=== PATIENT | male | born 1980 | race African-American/Black ===

== ENCOUNTER 2019-12-11 10:01 | Emergency (ER) | payer SELFPAY ==
--- NOTE | 2019-12-11 10:12 | ED Cardiac General ---
History of Present Illness General Chief Complaint: Chest Pain Stated Complaint: CHEST PAIN Source: patient, RN/MD, RN notes reviewed, old records Exam Limitations: no limitations History of Present Illness Date Seen by Provider: Dec 11, 2019 Time Seen by Provider: 10:00 Initial Comments This patient is a 39-year-old male that presents to the emergency department complaining of vague chest pain to the left side. Patient has significant history of hypertension for which she is supposed takes 3 different medications at home for. Patient states he admits noncompliance and just restarted on his blood pressure medicine 2 days ago. Patient presents to the emergency department from local clinic with a blood pressure 210/129. Patient takes amlodipine lisinopril and hydralazine 50 mg 3 times a day. Patient states he took his blood pressure medicine this morning all except the hydralazine and has not taken it. Patient states she's been under increased stress due to her -concerns for possible breast cancer and had a mammogram today. Patient states he has been admitted before in the past when living in [place] for blood pressure issues. And was told that he had a big heart. We'll do medical evaluation treatment is needed. Severity: moderate Location: substernal Activities at Onset: none Prior CP/Workup: non-cardiac Allergies and Home Medications Allergies Coded Allergies: No Known Drug Allergies (Unverified , 12/11/19) Patient Home Medication List Home Medication List Reviewed: Yes Review of Systems Review of Systems Constitutional: No no symptoms reported, No see HPI, No chills, No diaphoresis, No dizziness, No fever, No malaise, No weakness, No weight gain, No weight loss, No other EENTM: No No Symptoms Reported, No See HPI, No Blurred Vision, No Double Vision, No Eye Pain, No Eye Tearing, No Ear Drainage, No Ear Pain, No Mouth Pain, No Mouth Swelling, No Nose Congestion, No Nose Pain, No Throat Pain, No Throat Swelling, No Other Respiratory: Denies No Symptoms Reported, Denies See HPI, Denies Cough, Denies Orthopnea, Denies Shortness of Air, Denies SOA With Exertion, Denies SOA at Rest, Denies Stridor, Denies Wheezing, Denies Other Cardiovascular: Denies No Symptoms Reported; See HPI, Chest Pain; Denies Edema, Denies Irregular Heart Rate, Denies Lightheadedness, Denies Palpitations, Denies Syncope, Denies Other Gastrointestinal: Denies No Symptoms Reported, Denies See HPI, Denies Abdomen Distended, Denies Abdominal Pain, Denies Blood Streaked Stools, Denies Constipated, Denies Diarrhea, Denies Difficulty Swallowing, Denies Nausea, Сергей es Poor Appetite, Denies Poor Fluid Intake, Denies Rectal Bleeding, Denies Vomiting, Denies Other Genitourinary: Denies No Symptoms Reported, Denies See HPI, Denies Burning, Denies Discharge, Denies Drainage, Denies Frequency, Denies Flank Pain, Denies Hematuria, Denies Incontinence, Denies Pain, Denies Urgency, Denies Other Musculoskeletal: No no symptoms reported, No see HPI, No back pain, No gout, No joint pain, No joint swelling, No muscle pain, No muscle stiffness, No muscle cramps, No muscle twitching, No muscle weakness, No neck pain, No other Skin: No no symptoms reported, No see HPI, No change in color, No change in hair/nails, No dryness, No hx of skin cancer, No lesions, No lumps, No pruritus, No rash, No other All Other Systems Reviewed Negative Unless Noted: Yes Past Ddtxdil-Yyutzl-Yyzkvr Hx Patient Social History Recent Foreign Travel: No Contact w/Someone Who Travel: No Physical Exam Vital Signs Vital Signs - First Documented 12/11/19 10:08 Temp 36.7 Pulse 61 Resp 17 B/P (MAP) 210/129 (156) Pulse Ox 97 Capillary Refill : Height, Weight, BMI Height: '" Weight: lbs. oz. kg; BMI Method: General Appearance: No Apparent Distress, WD/WN Respiratory: Chest Non Tender, Lungs Clear, Normal Breath Sounds, No Accessory Muscle Use, No Respiratory Distress Cardiovascular: Regular Rate, Rhythm, No Edema, No Gallop, No JVD, No Murmur, Normal Peripheral Pulses Gastrointestinal: Normal Bowel Sounds, No Organomegaly, No Pulsatile Mass, Non Tender Neurologic/Psychiatric: Alert, Oriented x3, No Motor/Sensory Deficits, Normal Mood/Affect Skin: Normal Color, Warm/Dry Progress/Results/Core Measures Results/Orders Lab Results Laboratory Tests Test 12/11/19 10:09 12/11/19 10:47 Range/Units White Blood Count 5.0 4.3-11.0 10^3/uL Red Blood Count 5.48 4.35-5.85 10^6/uL Hemoglobin 14.4 13.3-17.7 G/DL Hematocrit 43 40-54 % Mean Corpuscular Volume 79 L 80-99 FL Mean Corpuscular Hemoglobin 26 25-34 PG Mean Corpuscular Hemoglobin Concent 34 32-36 G/DL Red Cell Distribution Width 13.8 10.0-14.5 % Platelet Count 206 130-400 10^3/uL Mean Platelet Volume 12.9 H 7.4-10.4 FL Immature Granulocyte % (Auto) 0 % Neutrophils (%) (Auto) 42 42-75 % Lymphocytes (%) (Auto) 48 H 12-44 % Monocytes (%) (Auto) 5 0-12 % Eosinophils (%) (Auto) 3 0-10 % Basophils (%) (Auto) 1 0-10 % Neutrophils # (Auto) 2.1 1.8-7.8 X 10^3 Lymphocytes # (Auto) 2.4 1.0-4.0 X 10^3 Monocytes # (Auto) 0.3 0.0-1.0 X 10^3 Eosinophils # (Auto) 0.2 0.0-0.3 10^3/uL Basophils # (Auto) 0.1 0.0-0.1 10^3/uL Immature Granulocyte # (Auto) 0.0 0.0-0.1 10^3/uL Prothrombin Time 13.5 12.2-14.7 SEC INR Comment 1.0 0.8-1.4 Sodium Level 140 135-145 MMOL/L Potassium Level 3.6 3.6-5.0 MMOL/L Chloride Level 104 98-107 MMOL/L Carbon Dioxide Level 27 21-32 MMOL/L Anion Gap 9 5-14 MMOL/L Blood Urea Nitrogen 11 7-18 MG/DL Creatinine 1.51 H 0.60-1.30 MG/DL Estimat Glomerular Filtration Rate 52 BUN/Creatinine Ratio 7 Glucose Level 111 H 70-105 MG/DL Calcium Level 9.3 8.5-10.1 MG/DL Corrected Calcium 8.5-10.1 MG/DL Total Bilirubin 0.3 0.1-1.0 MG/DL Aspartate Amino Transf (AST/SGOT) 42 H 5-34 U/L Alanine Aminotransferase (ALT/SGPT) 64 H 0-55 U/L Alkaline Phosphatase 85 40-136 U/L Troponin I < 0.30 <0.30 NG/ML Pro-B-Type Natriuretic Peptide 157.0 H <75.0 PG/ML Total Protein 7.4 6.4-8.2 GM/DL Albumin 4.6 H 3.2-4.5 GM/DL Urine Color YELLOW Urine Clarity CLEAR Urine pH 6.5 5-9 Urine Specific [place] 1.020 1.016-1.022 Urine Protein 1+ H NEGATIVE Urine Glucose (UA) NEGATIVE NEGATIVE Urine Ketones NEGATIVE NEGATIVE Urine Nitrite NEGATIVE NEGATIVE Urine Bilirubin NEGATIVE NEGATIVE Urine Urobilinogen 0.2 < = 1.0 MG/DL Urine Leukocyte Esterase NEGATIVE NEGATIVE Urine RBC (Auto) NEGATIVE NEGATIVE Urine RBC RARE /HPF Urine WBC NONE /HPF Urine Squamous Epithelial Cells RARE /HPF Urine Crystals NONE /LPF Urine Bacteria NONE /HPF Urine Casts NONE /LPF Urine Mucus NEGATIVE /LPF Urine Culture Indicated NO My Orders Orders - CAROLINA BROWN MD Ed Iv/Invasive Line Start (12/11/19 10:06) Cbc With Automated Diff (12/11/19 10:06) Comprehensive Metabolic Panel (12/11/19 10:06) Probnp Fs (12/11/19 10:06) Protime With Inr (12/11/19 10:06) Troponin I Fs (12/11/19 10:06) Urinalysis (12/11/19 10:06) Ekg Tracing (12/11/19 10:06) Chest 1 View Ap/Pa Only (12/11/19 10:06) Hydralazine Injection (Apresoline Inject (12/11/19 10:15) Aspirin Tablet (Aspirin Tablet) (12/11/19 10:15) Nitroglycerin 0.4 Mg Btl 25's (Nitrostat (12/11/19 10:15) Medications Given in ED Current Medications Medications Dose Ordered Sig/Brianna Route Start Time Stop Time Status Last Admin Dose Admin Aspirin 325 mg ONCE ONCE PO 12/11/19 10:15 12/11/19 10:16 DC 12/11/19 10:19 325 MG Hydralazine HCl 10 mg ONCE ONCE IV 12/11/19 10:15 12/11/19 10:16 DC 12/11/19 10:20 10 MG Nitroglycerin 1 TAB Q 5 MIN X 3 NEEDED PRN SL 12/11/19 10:15 12/11/19 10:20 0.4 MG Vital Signs/I&O 12/11/19 10:08 Temp 36.7 Pulse 61 Resp 17 B/P (MAP) 210/129 (156) Pulse Ox 97 Progress Progress Note : Time: 11:11 Progress Note This patient presents to the emergency department complaining of chest pressure and hypertension. Patient is much improved denies any chest pain at this time. Negative cardiac evaluation in the emergency department. Patient still has elevated blood pressure 190/97. Heart rate 75. I did discuss at length with patient about findings and concerns a significant elevation of blood pressure and recommended the patient further evaluation treatment and offered inpatient evaluation in the hospital. Patient declines. Patient states his blood pressures always around 190/90. I did discuss at length with patient about history of noncompliance. The patient states he just got a refill on his medications and admits he did not take his hydralazine today. Patient is to continue all of his home medications. Again patient was offered admission but he declines. Patient advised any blood pressure log and follow up with PCP in 2-3 days may need f urther blood pressure evaluation and treatment and modification of his current treatment. Patient states understanding again requests to be discharged home. Patient be discharged per his request. Continue all home medications. Keep blood pressure log as discussed. Follow-up with PCP in 2-3 days. Avoid caffeine. Initial ECG Impression Date: Dec 11, 2019 Initial ECG Impression Time: 09:59 Initial ECG Rate: 69 Initial ECG Intervals: Normal Initial ECG Impression: Nonspecific Changes Comment Sinus rhythm with a heart rate of 69. Patient appears to have left atrial enlargement and incomplete right bundle branch lock in a left anterior fascicular block. Nonspecific EKG changes. We'll do medical evaluation treatment is needed. Departure Impression Primary Impression: Chest pain Additional Impressions: Hypertension History of noncompliance with medical treatment Disposition: 01 HOME, SELF-CARE Condition: Stable Departure-Patient Inst. Referrals: KITTY VILLALBA APRN (PCP) Primary Care Physician [facility] (Family) Primary Care Physician Patient Instructions: Malignant Hypertension (DC), DASH Diet Add. Discharge Instructions: Continue all home medications. Keep blood pressure log as discussed. Follow-up with PCP in 2-3 days. Avoid caffeine. All discharge instructions reviewed with patient and/or family. Voiced understanding. CAROLINA BROWN MD Dec 11, 2019 10:12
[2019-12-11] MEDS ORDERED: NITROGLYCERIN 0.4 MG SL TABS BTL 25'S SL PRN (10:15)
[2019-12-11] MEDS ORDERED: ASPIRIN 325 MG (5 GR) TABLET PO ONE (10:15)
[2019-12-11] MEDS ORDERED: hydrALAZINE (APESOLINE) 20 MG/ML VIAL IV ONE (10:15)
[2019-12-11 10:17] LABS: HEMATOCRIT 43 % (40-54); HEMOGLOBIN 14.4 G/DL (13.3-17.7); MEAN CORPUSCULAR HEMOGLOBIN 26 PG (25-34); MEAN CORPUSCULAR HGB CONC 34 G/DL (32-36); MEAN CORPUSCULAR VOLUME 79 FL (80-99); MEAN PLATELET VOLUME 12.9 FL (7.4-10.4); NEUTROPHILS % (AUTO) 42 % (42-75); PLATELET COUNT 206 10^3/uL (130-400)
[2019-12-11 10:18] LABS: BASOPHILS # (AUTO) 0.1 10^3/uL (0.0-0.1); BASOPHILS % (AUTO) 1 % (0-10); EOSINOPHILS # (AUTO) 0.2 10^3/uL (0.0-0.3); EOSINOPHILS % (AUTO) 3 % (0-10); LYMPHOCYTES # (AUTO) 2.4 X 10^3 (1.0-4.0); LYMPHOCYTES % (AUTO) 48 % (12-44); MONOCYTES # (AUTO) 0.3 X 10^3 (0.0-1.0); MONOCYTES % (AUTO) 5 % (0-12); NEUTROPHILS # (AUTO) 2.1 X 10^3 (1.8-7.8)
[2019-12-11 10:28] LABS: PROTHROMBIN TIME PATIENT 13.5 SEC (12.2-14.7)
[2019-12-11 10:42] LABS: CARBON DIOXIDE 27 MMOL/L (21-32); CHLORIDE 104 MMOL/L (98-107); POTASSIUM 3.6 MMOL/L (3.6-5.0); SODIUM 140 MMOL/L (135-145)
[2019-12-11 10:43] LABS: ALANINE AMINOTRANSFERASE 64 U/L (0-55); ALBUMIN 4.6 GM/DL (3.2-4.5); ALKALINE PHOSPHATASE 85 U/L (40-136); BILIRUBIN,TOTAL 0.3 MG/DL (0.1-1.0); BUN/CREATININE RATIO 7; CALCIUM 9.3 MG/DL (8.5-10.1); CREATININE SERUM 1.51 MG/DL (0.60-1.30); GFR ESTIMATED 52; GLUCOSE 111 MG/DL (70-105); TOTAL PROTEIN 7.4 GM/DL (6.4-8.2)
--- NOTE | 2019-12-11 10:52 | Diagnostic Imaging Report ---
INDICATION: Chest pain FINDING: Portable chest. The lungs are well-aerated and clear. Heart is not enlarged. No pulmonary edema or hilar adenopathy. No pneumothorax or pleural effusion. No bony abnormalities. IMPRESSION: Negative portable chest. Dictated by: Dictated on workstation # [id number]
[2019-12-11 10:58] LABS: BILIRUBIN,URINE NEGATIVE (NEGATIVE); CLARITY,URINE CLEAR; COLOR,URINE YELLOW; GLUCOSE, URINE (UA) NEGATIVE (NEGATIVE); KETONES,URINE NEGATIVE (NEGATIVE); LEUKOCYTE ESTERASE ,URINE NEGATIVE (NEGATIVE); NITRITE,URINE NEGATIVE (NEGATIVE); PH,URINE 6.5 (5-9); PROTEIN,URINE 1+ (NEGATIVE); RBC,URINE RARE /HPF; SQUAMOUS EPITHELIAL CELL,UR RARE /HPF
[2019-12-11 11:18] VITALS: BP 196/107
== END 2019-12-11 11:19 | disposition home or self-care (01) ==
LOC: ER FS 10:03
DX: R07.9 Chest pain, unspecified (principal); I10 Essential (primary) hypertension; Z91.19 Patient's noncompliance with other medical treatment and regimen
CPT/HCPCS: 36415; 71045; 80053; 81000; 83880; 84484; 85025; 85610; 93005

== ENCOUNTER 2020-05-05 23:46 | Emergency (ER) | payer SELFPAY ==
[~2020-05-05] VITALS: Ht 180.3 cm; Wt 110.2 kg
[2020-05-06] MEDS ORDERED: ASPIRIN 81 MG CHEW (CHILDREN'S ASA) PO ONE
[2020-05-06] MEDS: NITROGLYCERIN 0.4 MG SL TABS BTL 25'S SL PRN ×2 (00:10→00:25)
--- NOTE | 2020-05-06 00:11 | ED Chest Pain ---
General Stated Complaint: BACK AND CHEST PAIN History of Present Illness Date Seen by Provider: May 06, 2020 Time Seen by Provider: 23:55 Initial Comments 40-year-old male presents with onset of chest pain 5 hours prior to arrival. States it pain began after smoking marijuana has been persistent since then. Denies history of heart disease or other heart problem except that he was told he enlarged heart in the past. He does have a history of high blood pressure, but has not taken his medication today. Is any recent illness, fever or chills. Denies any previous similar episodes of chest pain. Has abdominal pain, nausea vomiting or diarrhea. Allergies and Home Medications Allergies Coded Allergies: No Known Drug Allergies (Unverified , 12/11/19) Patient Home Medication List Home Medication List Reviewed: Yes Review of Systems Review of Systems Constitutional: No chills, No fever, No malaise, No weakness EENTM: No Symptoms Reported Respiratory: Denies Cough, Denies Shortness of Air Cardiovascular: Chest Pain; Denies Edema, Denies Irregular Heart Rate, Denies Lightheadedness, Denies Palpitations, Denies Syncope Gastrointestinal: Denies Abdominal Pain, Denies Diarrhea, Denies Nausea, Denies Poor Appetite, Denies Vomiting Musculoskeletal: back pain (mid upper back) Skin: No change in color, No lesions, No rash Psychiatric/Neurological: Denies Headache, Denies Numbness, Denies Paresthesia Past Wyvehqd-Ovublz-Newnva Hx Past Med/Social Hx: Reviewed Nursing Past Med/Soc Hx Patient Social History 2nd Hand Smoke Exposure: No Recent Hopitalizations: No Substance type: Marijuana Seasonal Allergies Seasonal Allergies: No Past Medical History 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 oz. kg; BMI Method: General Appearance: WD/WN, Anxious HEENT: PERRL/EOMI, TMs Normal Neck: Non Tender, Supple Respiratory: Lungs Clear, Normal Breath Sounds, No Accessory Muscle Use, No Res piratory Distress Cardiovascular: Regular Rate, Rhythm, No Gallop, No JVD Gastrointestinal: Non Tender, Soft Extremity: Normal Capillary Refill, Non Tender Neurologic/Psychiatric: Alert, Oriented x3, No Motor/Sensory Deficits, Normal Mood/Affect Skin: Normal Color, Warm/Dry Progress/Results/Core Measures Results/Orders Lab Results Laboratory Tests Test 05/05/20 23:58 05/06/20 00:01 Range/Units White Blood Count 9.8 4.3-11.0 10^3/uL Red Blood Count 4.78 4.35-5.85 10^6/uL Hemoglobin 12.4 L 13.3-17.7 G/DL Hematocrit 38 L 40-54 % Mean Corpuscular Volume 80 80-99 FL Mean Corpuscular Hemoglobin 26 25-34 PG Mean Corpuscular Hemoglobin Concent 33 32-36 G/DL Red Cell Distribution Width 13.6 10.0-14.5 % Platelet Count 171 130-400 10^3/uL Mean Platelet Volume 12.5 H 7.4-10.4 FL Immature Granulocyte % (Auto) 0 % Neutrophils (%) (Auto) 76 H 42-75 % Lymphocytes (%) (Auto) 18 12-44 % Monocytes (%) (Auto) 5 0-12 % Eosinophils (%) (Auto) 1 0-10 % Basophils (%) (Auto) 0 0-10 % Neutrophils # (Auto) 7.5 1.8-7.8 X 10^3 Lymphocytes # (Auto) 1.7 1.0-4.0 X 10^3 Monocytes # (Auto) 0.5 0.0-1.0 X 10^3 Eosinophils # (Auto) 0.1 0.0-0.3 10^3/uL Basophils # (Auto) 0.0 0.0-0.1 10^3/uL Immature Granulocyte # (Auto) 0.0 0.0-0.1 10^3/uL Sodium Level 142 135-145 MMOL/L Potassium Level 3.5 L 3.6-5.0 MMOL/L Chloride Level 103 98-107 MMOL/L Carbon Dioxide Level 27 21-32 MMOL/L Anion Gap 12 5-14 MMOL/L Blood Urea Nitrogen 23 H 7-18 MG/DL Creatinine 2.18 H 0.60-1.30 MG/DL Estimat Glomerular Filtration Rate 41 BUN/Creatinine Ratio 11 Glucose Level 97 70-105 MG/DL Calcium Level 9.1 8.5-10.1 MG/DL Corrected Calcium 8.9 8.5-10.1 MG/DL Total Bilirubin 0.7 0.1-1.0 MG/DL Aspartate Amino Transf (AST/SGOT) 52 H 5-34 U/L Alanine Aminotransferase (ALT/SGPT) 52 0-55 U/L Alkaline Phosphatase 74 40-136 U/L Troponin I < 0.30 <0.30 NG/ML Total Protein 7.2 6.4-8.2 GM/DL Albumin 4.3 3.2-4.5 GM/DL Urine Opiates Screen NEGATIVE NEGATIVE Urine Oxycodone Screen NEGATIVE NEGATIVE Urine Methadone Screen NEGATIVE NEGATIVE Urine Propoxyphene Screen NEGATIVE NEGATIVE Urine Barbiturates Screen NEGATIVE NEGATIVE Ur Tricyclic Antidepressants Screen NEGATIVE NEGATIVE Urine Phencyclidine Screen NEGATIVE NEGATIVE Urine Amphetamines Screen POSITIVE H NEGATIVE Urine Methamphetamines Screen POSITIVE H NEGATIVE Urine Benzodiazepines Screen NEGATIVE NEGATIVE Urine Cocaine Screen POSITIVE H NEGATIVE Urine Cannabinoids Screen POSITIVE H NEGATIVE My Orders Orders - ROVENSTINE,WEN L DO Ed Iv/Invasive Line Start (05/05/20 23:56) Chest 1 View Ap/Pa Only (05/05/20 23:56) Ekg Tracing (05/05/20 23:56) Troponin I Fs (05/05/20 23:56) Cbc With Automated Diff (05/05/20 23:56) Comprehensive Metabolic Panel (05/05/20 23:56) Drug Screen Stat (Urine) (05/05/20 23:56) Aspirin Chewable Tablet (Baby Aspirin Ch (05/06/20 00:00) Nitroglycerin 0.4 Mg Btl 25's (Nitrostat (05/06/20 00:00) Ns Iv 1000 Ml (Sodium Chloride 0.9%) (05/06/20 00:30) Ct Chest Wo (05/06/20 00:28) Fentanyl Injection (Sublimaze Injection (05/06/20 01:30) Medications Given in ED Current Medications Medications Dose Ordered Sig/Brianna Route Start Time Stop Time Status Last Admin Dose Admin Aspirin 324 mg ONCE ONCE PO 05/06/20 00:00 05/06/20 00:01 DC 05/06/20 00:10 324 MG Fentanyl Citrate 50 mcg ONCE ONCE IVP 05/06/20 01:30 05/06/20 01:31 DC 05/06/20 01:28 50 MCG Nitroglycerin 0.4 mg NEEDED PRN SL 05/06/20 00:00 05/06/20 00:25 0.4 MG Vital Signs/I&O 05/05/20 05/06/20 23:50 00:05 Temp 37.2 Pulse 79 Resp 16 B/P (MAP) 205/93 (130) Pulse Ox 96 O2 Delivery Room Air Room Air Progress Progress Note : Time: 00:36 Progress Note after 2 NTG, CP resolved but still having upper back pain. CT chest ordered. BP normalized w NTG as well, now 119/60. UDS shows meth, cocaine and THC CT without contrast (due to low GFR) shows descending aorta larger than ascending aorta (see report). Recommends contrast CT to eval for dissection if clinically suspicious. Patients CP essentially resolved and upper mid back pain remains, improved w fentanyl. Initial ECG Impression Date: May 06, 2020 Initial ECG Impression Time: 23:50 Initial ECG Rate: 80 Initial ECG Rhythm: Normal Sinus Initial ECG Intervals: Normal Initial ECG Impression: Nonspecific Changes Initial ECG Comparisson: No Previous ECG Available Comment LVH w repol abnl EKG : EKG Time: 00:05 Rate: 80 Rhythm: Normal Sinus Intervals: Normal ECG Comparisson: Unchanged (from 15 minutes prior) Diagnostic Imaging Diagonstic Imaging: CT Plain Films/CT/US/NM/MRI: chest Comments non-contrast CT (due to poor renal function) limits the study, however, noted difference of size of ascending vs descending aorta (3cm to 4cm respectively).....recommends a contrast study for excluding a dissection if suspicious. Departure Impression Primary Impression: Chest pain Qualified Codes: R07.9 - Chest pain, unspecified Additional Impressions: Drug abuse Renal insufficiency Disposition: XFER SHT-TRM HOSP Condition: Improved Transfer Transfer Reason: Exceeds level of care (possibility of need for CT- surgery) Transfer Progress Notes Called [facility] @ [phone], spoke to Dr Mejia in the ER @ 1554 who advised patient by a direct admit as work up was complete until when and if able to give contrast. spoke to Dr Nava who accepts for transfer to [facility] @ [phone] Departure-Patient Inst. Referrals: KITTY VILLALBA APRN (PCP) Primary Care Physician [facility] (Family) Primary Care Physician WEN MCKEON DO May 06, 2020 00:11
[2020-05-06 00:22] LABS: AMPHETAMINE SCREEN, URINE POSITIVE (NEGATIVE); BENZODIAZEPINES SCREEN URINE NEGATIVE (NEGATIVE); CANNABINOID SCREEN, URINE POSITIVE (NEGATIVE); COCAINE SCREEN URINE POSITIVE (NEGATIVE); METHAMPHETAMINE SCREEN URINE S POSITIVE (NEGATIVE)
[2020-05-06 00:23] LABS: BARBITURATE SCREEN URINE NEGATIVE (NEGATIVE); METHADONE STAT NEGATIVE (NEGATIVE); OPIATE SCREEN URINE NEGATIVE (NEGATIVE); OXYCODONE STAT NEGATIVE (NEGATIVE); PROPOXYPHENE STAT NEGATIVE (NEGATIVE); TRICYCLIC ANTIDEPRESSANTS SCRE NEGATIVE (NEGATIVE)
[2020-05-06 00:24] LABS: BASOPHILS % (AUTO) 0 % (0-10); EOSINOPHILS # (AUTO) 0.1 10^3/uL (0.0-0.3); EOSINOPHILS % (AUTO) 1 % (0-10); HEMATOCRIT 38 % (40-54); HEMOGLOBIN 12.4 G/DL (13.3-17.7); LYMPHOCYTES # (AUTO) 1.7 X 10^3 (1.0-4.0); LYMPHOCYTES % (AUTO) 18 % (12-44); MEAN CORPUSCULAR HEMOGLOBIN 26 PG (25-34); MEAN CORPUSCULAR HGB CONC 33 G/DL (32-36); MEAN CORPUSCULAR VOLUME 80 FL (80-99); MEAN PLATELET VOLUME 12.5 FL (7.4-10.4); MONOCYTES # (AUTO) 0.5 X 10^3 (0.0-1.0); MONOCYTES % (AUTO) 5 % (0-12); NEUTROPHILS # (AUTO) 7.5 X 10^3 (1.8-7.8); NEUTROPHILS % (AUTO) 76 % (42-75); PLATELET COUNT 171 10^3/uL (130-400); WHITE BLOOD COUNT 9.8 10^3/uL (4.3-11.0)
[2020-05-06 00:30] LABS: CARBON DIOXIDE 27 MMOL/L (21-32); CHLORIDE 103 MMOL/L (98-107); POTASSIUM 3.5 MMOL/L (3.6-5.0); SODIUM 142 MMOL/L (135-145)
[2020-05-06] MEDS ORDERED: NS IV 1000 ML 1,000 ML IV SCH ×2 (00:30→02:45)
[2020-05-06 00:31] LABS: ALANINE AMINOTRANSFERASE 52 U/L (0-55); ALBUMIN 4.3 GM/DL (3.2-4.5); ALKALINE PHOSPHATASE 74 U/L (40-136); BILIRUBIN,TOTAL 0.7 MG/DL (0.1-1.0); BUN/CREATININE RATIO 11; CALCIUM 9.1 MG/DL (8.5-10.1); CREATININE SERUM 2.18 MG/DL (0.60-1.30); GFR ESTIMATED 41; GLUCOSE 97 MG/DL (70-105); TOTAL PROTEIN 7.2 GM/DL (6.4-8.2)
[2020-05-06] MEDS ORDERED: fentaNYL INJ 100 MCG/2 ML AMP IVP ONE ×3 (01:30→04:15)
[2020-05-06 03:40] VITALS: BP 189/93
--- NOTE | 2020-05-06 05:28 | Diagnostic Imaging Report ---
PROCEDURE: CT chest without contrast. TECHNIQUE: Multiple contiguous axial images were obtained through the chest without the use of intravenous contrast. Auto Exposure Controls were utilized during the CT exam to meet ALARA standards for radiation dose reduction. INDICATION: Central chest pain radiating to back. No definite mediastinal hematoma or pericardial fluid is seen. No pleural fluid is identified. Evaluation of the aorta is significantly limited without intravenous contrast. The aortic root and ascending thoracic aorta appears to normal caliber. There is some dilatation of the proximal aspect of the descending thoracic aorta measuring up to 4.6 cm AP diameter. No high density intraluminal thrombus is seen. Evaluation of the lung adair demonstrate some dependent atelectasis in both lower lobes. No masses are seen. Upper abdomen demonstrates low-density throughout the liver consistent with hepatic steatosis. IMPRESSION: 1. Limited evaluation of the abdominal aorta due to absence of intravenous contrast. This significantly limits evaluation for dissection. There is some dilatation of the proximal aspect of the descending thoracic aorta just beyond the aortic arch but no high density intraluminal thrombus is seen. If there is continued index of suspicion for dissection, post contrast study would be recommended. Consideration could also be given to performance of an echocardiogram. 2. Hepatic steatosis. Dictated by: Dictated on workstation # [id number]
--- NOTE | 2020-05-06 06:03 | Diagnostic Imaging Report ---
INDICATION: Chest pain. Comparison with 12/11/2019. FINDINGS: Portable chest. The lungs are well-aerated and clear. Heart is not enlarged. No pulmonary edema or hilar adenopathy. No pneumothorax or pleural effusion. No bony abnormalities. IMPRESSION: Normal portable chest. Dictated by: Dictated on workstation # [id number]
== END 2020-05-06 04:29 | disposition short-term general hospital (02) ==
LOC: EDUNIT# 23:46 → ER FS 23:48
DX: R07.9 Chest pain, unspecified (principal); F12.10 Cannabis abuse, uncomplicated; N28.9 Disorder of kidney and ureter, unspecified; I10 Essential (primary) hypertension
CPT/HCPCS: 36415; 71045; 71250; 80053; 80306; 84484; 85025; 93005

== ENCOUNTER 2020-05-17 18:32 | Emergency (ER) | payer SELFPAY ==
[2020-05-17 18:44] VITALS: BP 261/95
[2020-05-17] MEDS ORDERED: LABETALOL HCL 20 MG/4 ML VIAL ONE (18:53)
[2020-05-17 18:57] LABS: BASOPHILS # (AUTO) 0.1 10^3/uL (0.0-0.1); BASOPHILS % (AUTO) 1 % (0-10); EOSINOPHILS # (AUTO) 0.2 10^3/uL (0.0-0.3); EOSINOPHILS % (AUTO) 2 % (0-10); HEMATOCRIT 31 % (40-54); HEMOGLOBIN 10.4 G/DL (13.3-17.7); LYMPHOCYTES # (AUTO) 2.2 X 10^3 (1.0-4.0); LYMPHOCYTES % (AUTO) 15 % (12-44); MEAN CORPUSCULAR HEMOGLOBIN 26 PG (25-34); MEAN CORPUSCULAR HGB CONC 33 G/DL (32-36); MEAN CORPUSCULAR VOLUME 79 FL (80-99); MEAN PLATELET VOLUME 12.3 FL (7.4-10.4); MONOCYTES # (AUTO) 0.9 X 10^3 (0.0-1.0); MONOCYTES % (AUTO) 6 % (0-12); NEUTROPHILS % (AUTO) 73 % (42-75); PLATELET COUNT 385 10^3/uL (130-400)
[2020-05-17] MEDS ORDERED: LABETALOL HCL 20 MG/4 ML VIAL IV ONE ×2 (19:00→20:15)
--- NOTE | 2020-05-17 19:00 | Diagnostic Imaging Report ---
EXAMINATION: Chest 1 view. HISTORY: SOA. COMPARISON: Chest radiograph 05/05/2020. FINDINGS: Heart size is upper limits of normal. Minimal linear opacities in the right lung base. No pleural effusion or pneumothorax. The osseous structures are intact. IMPRESSION: Likely right basilar atelectasis. Differential consideration could include scarring or consolidation in the appropriate clinical setting. No other acute radiographic abnormality in the chest. Dictated by: Dictated on workstation # [id number]
[2020-05-17 19:17] LABS: ABG PCO2 37 MMHG (35-45); ABG PH 7.57 (7.37-7.43); ABG PO2 316 MMHG (79-93)
[2020-05-17 19:18] LABS: ABG BASE EXCESS 11.1 MMOL/L (-2.5-2.5); ABG OXYGEN SATURATION 110 % (94-100); ALLENS TEST NEGATIVE
[2020-05-17 19:19] LABS: INSPIRED O2 ROOM AIR; PATIENT TEMP 36.8; VENTILATOR NO
[2020-05-17 19:20] LABS: ALANINE AMINOTRANSFERASE 154 U/L (0-55); ALBUMIN 3.2 GM/DL (3.2-4.5); ALKALINE PHOSPHATASE 84 U/L (40-136); BILIRUBIN,TOTAL 0.4 MG/DL (0.1-1.0); BUN/CREATININE RATIO 8; CALCIUM 8.4 MG/DL (8.5-10.1); CARBON DIOXIDE 30 MMOL/L (21-32); CHLORIDE 96 MMOL/L (98-107); CREATININE SERUM 1.47 MG/DL (0.60-1.30); GFR ESTIMATED > 60; GLUCOSE 101 MG/DL (70-105); POTASSIUM 3.2 MMOL/L (3.6-5.0); SODIUM 135 MMOL/L (135-145); TOTAL PROTEIN 6.2 GM/DL (6.4-8.2)
[2020-05-17] MEDS ORDERED: FUROSEMIDE 40 MG/4 ML INJ (LASIX) IVP ONE (20:15)
[2020-05-17 20:29] LABS: BAND NEUTROPHILS 1 %; LYMPHOCYTES % (MANUAL) 14 %; MONOCYTES % (MANUAL) 4 %; NEUTROPHILS % (MANUAL) 80 %; PLATELET ESTIMATE LRG PLTS; POLYCHROMASIA SLIGHT
[2020-05-17 20:30] LABS: MICROCYTOSIS SLIGHT; TARGET CELLS SLIGHT; TOXIC GRANULATION/VACUOLAZATIO 4+
[2020-05-17 21:50] LABS: AMPHETAMINE SCREEN, URINE NEGATIVE (NEGATIVE); BARBITURATE SCREEN URINE NEGATIVE (NEGATIVE); BENZODIAZEPINES SCREEN URINE POSITIVE (NEGATIVE); CANNABINOID SCREEN, URINE NEGATIVE (NEGATIVE); COCAINE SCREEN URINE NEGATIVE (NEGATIVE); METHADONE STAT NEGATIVE (NEGATIVE); METHAMPHETAMINE SCREEN URINE S NEGATIVE (NEGATIVE); OPIATE SCREEN URINE NEGATIVE (NEGATIVE); OXYCODONE STAT NEGATIVE (NEGATIVE); PROPOXYPHENE STAT NEGATIVE (NEGATIVE); TRICYCLIC ANTIDEPRESSANTS SCRE NEGATIVE (NEGATIVE)
--- NOTE | 2020-05-18 06:01 | ED General ---
General Chief Complaint: Respiratory Problems Stated Complaint: SOA Nursing Triage Note: Pt brought in by ems with complaints of sob. Pt was at [facility] and left AMA today but was diagnosed with an AAA. Nursing Sepsis Screen: No Definite Risk Source of Information: EMS, Family Exam Limitations: No Limitations History of Present Illness Date Seen by Provider: May 17, 2020 Time Seen by Provider: 18:50 Initial Comments Patient is a 40-year-old -[place] male with history of hypertension congestive heart failure and AAA who checked out AGAINST MEDICAL ADVICE earlier today from [facility]. Patient was being evaluated for AAA repair. However decided he had had enough time in the hospital and needed a break. Patient presents in respiratory distress requiring BiPAP. He is hypertensive hypoxic but denies chest pain. Patient's was driving him from the hospital when he became more short of breath and had to contact EMS. History is limited by the patient's clinical condition. Timing/Duration: Other Severity: Severe Associated Systoms: Shortness of Air Allergies and Home Medications Allergies Coded Allergies: No Known Drug Allergies (Unverified , 12/11/19) Patient Home Medication List Home Medication List Reviewed: Yes Review of Systems Review of Systems Constitutional: see HPI Cardiovascular: see HPI Genitourinary: see HPI Musculoskeletal: see HPI Skin: see HPI Psychiatric/Neurological: See HPI Hematologic/Lymphatic: See HPI Immunological/Allergic: see HPI All Other Systems Reviewed Negative Unless Noted: Yes Past Lrzbkdj-Zmhwhw-Jyxlqz Hx Past Med/Social Hx: Reviewed Nursing Past Med/Soc Hx Patient Social History Alcohol Use: Denies Use Drug of Choice: Marijuana 2nd Hand Smoke Exposure: No Recent Infectious Disease Expo: No Recent Hopitalizations: No Seasonal Allergies Seasonal Allergies: No Past Medical History 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 oz. kg; 33.00 BMI Method: General Appearance: Moderate Distress (Respiratory distress) Eyes: Bilateral Eye Normal Inspection, Bilateral Eye PERRL, Bilateral Eye EOMI HEENT: PERRL/EOMI, Pharynx Normal, Moist Mucous Membranes Neck: Full Range of Motion, Non Tender Respiratory: Decreased Breath Sounds, Rales, Respiratory Distress Cardiovascular: Regular Rate, Rhythm, No JVD Gastrointestinal: Non Tender, Soft Extremity: Swelling Skin: Normal Color Focused Exam Sepsis Stage: Ruled Out Lactate Level 05/17/20 18:57: Lactic Acid Level 0.65 Lactic Acid Level Laboratory Tests Test 05/17/20 18:57 Lactic Acid Level 0.65 MMOL/L (0.50-2.00) Progress/Results/Core Measures Suspected Sepsis Recent Fever Within 48 Hours: No Infection Criteria Present: None New/Unexplained Altered Menta: No Sepsis Screen: No Definite Risk SIRS Temperature: Pulse: 93 Respiratory Rate: 18 Laboratory Tests 05/17/20 18:50: White Blood Count 15.0H Blood Pressure 261 /95 Mean: 150 05/17/20 18:57: Lactic Acid Level 0.65 Laboratory Tests 05/17/20 18:50: Creatinine 1.47H, Platelet Count 385, Total Bilirubin 0.4 Results/Orders Lab Results Laboratory Tests Test 05/17/20 18:50 05/17/20 18:57 05/17/20 19:00 05/17/20 19:15 Range/Units White Blood Count 15.0 H 4.3-11.0 10^3/uL Red Blood Count 3.95 L 4.35-5.85 10^6/uL Hemoglobin 10.4 L 13.3-17.7 G/DL Hematocrit 31 L 40-54 % Mean Corpuscular Volume 79 L 80-99 FL Mean Corpuscular Hemoglobin 26 25-34 PG Mean Corpuscular Hemoglobin Concent 33 32-36 G/DL Red Cell Distribution Width 14.2 10.0-14.5 % Platelet Count 385 130-400 10^3/uL Mean Platelet Volume 12.3 H 7.4-10.4 FL Immature Granulocyte % (Auto) 4 % Neutrophils (%) (Auto) 73 42-75 % Lymphocytes (%) (Auto) 15 12-44 % Monocytes (%) (Auto) 6 0-12 % Eosinophils (%) (Auto) 2 0-10 % Basophils (%) (Auto) 1 0-10 % Neutrophils # (Auto) 11.0 H 1.8-7.8 X 10^3 Lymphocytes # (Auto) 2.2 1.0-4.0 X 10^3 Monocytes # (Auto) 0.9 0.0-1.0 X 10^3 Eosinophils # (Auto) 0.2 0.0-0.3 10^3/uL Basophils # (Auto) 0.1 0.0-0.1 10^3/uL Immature Granulocyte # (Auto) 0.6 H 0.0-0.1 10^3/uL Neutrophils % (Manual) 80 % Lymphocytes % (Manual) 14 % Monocytes % (Manual) 4 % Band Neutrophils 1 % Toxic Granulation 4+ Platelet Estimate LRG PLTS Polychromasia SLIGHT Microcytosis SLIGHT Target Cells SLIGHT Sodium Level 135 135-145 MMOL/L Potassium Level 3.2 L 3.6-5.0 MMOL/L Chloride Level 96 L 98-107 MMOL/L Carbon Dioxide Level 30 21-32 MMOL/L Anion Gap 9 5-14 MMOL/L Blood Urea Nitrogen 12 7-18 MG/DL Creatinine 1.47 H 0.60-1.30 MG/DL Estimat Glomerular Filtration Rate > 60 BUN/Creatinine Ratio 8 Glucose Level 101 70-105 MG/DL Calcium Level 8.4 L 8.5-10.1 MG/DL Corrected Calcium 9.0 8.5-10.1 MG/DL Total Bilirubin 0.4 0.1-1.0 MG/DL Aspartate Amino Transf (AST/SGOT) 125 H 5-34 U/L Alanine Aminotransferase (ALT/SGPT) 154 H 0-55 U/L Alkaline Phosphatase 84 40-136 U/L Troponin I < 0.30 <0.30 NG/ML Pro-B-Type Natriuretic Peptide 1540.0 H <75.0 PG/ML Total Protein 6.2 L 6.4-8.2 GM/DL Albumin 3.2 3.2-4.5 GM/DL Lactic Acid Level 0.65 0.50-2.00 MMOL/L Urine Opiates Screen NEGATIVE NEGATIVE Urine Oxycodone Screen NEGATIVE NEGATIVE Urine Methadone Screen NEGATIVE NEGATIVE Urine Propoxyphene Screen NEGATIVE NEGATIVE Urine Barbiturates Screen NEGATIVE NEGATIVE Ur Tricyclic Antidepressants Screen NEGATIVE NEGATIVE Urine Phencyclidine Screen NEGATIVE NEGATIVE Urine Amphetamines Screen NEGATIVE NEGATIVE Urine Methamphetamines Screen NEGATIVE NEGATIVE Urine Benzodiazepines Screen POSITIVE H NEGATIVE Urine Cocaine Screen NEGATIVE NEGATIVE Urine Cannabinoids Screen NEGATIVE NEGATIVE Blood Gas Puncture Site RIGHT WRIST Blood Gas Patient Temperature 36.8 Arterial Blood pH 7.57 H 7.37-7.43 Arterial Blood Partial Pressure CO2 37 35-45 MMHG Arterial Blood Partial Pressure O2 316 H 79-93 MMHG Arterial Blood HCO3 34 H 23-27 MMOL/L Arterial Blood Total CO2 35.0 H 21.0-31.0 MMOL/L Arterial Blood Oxygen Saturation 110 H 94-100 % Arterial Blood Base Excess 11.1 H -2.5-2.5 MMOL/L Gibran Test NEGATIVE Blood Gas Ventilator Setting NO Blood Gas Inspired Oxygen ROOM AIR My Orders Orders - FELICIA GREEN DO Cbc With Automated Diff (05/17/20 18:48) Comprehensive Metabolic Panel (05/17/20 18:48) Chest 1 View Ap/Pa Only (05/17/20 18:48) Troponin I Fs (05/17/20 18:48) Probnp Fs (05/17/20 18:48) Arterial Blood Gas (05/17/20 18:48) Lactic Acid Analyzer (05/17/20 18:48) Blood Culture (05/17/20 18:48) Labetalol Injection (Normodyne Injection (05/17/20 19:00) Manual Differential (05/17/20 18:50) Labetalol Injection (Normodyne Injection (05/17/20 18:53) Ekg Tracing (05/17/20 19:18) Blood Culture (05/17/20 19:15) Labetalol Injection (Normodyne Injection (05/17/20 20:15) Furosemide Injection (Lasix Injection) (05/17/20 20:15) Drug Screen Stat (Urine) (05/17/20 21:28) Medications Given in ED Current Medications Medications Dose Ordered Sig/Brianna Route Start Time Stop Time Status Last Admin Dose Admin Furosemide 40 mg ONCE ONCE IVP 05/17/20 20:15 05/17/20 20:16 DC 05/17/20 20:26 40 MG Labetalol HCl 20 mg ONCE ONCE IV 05/17/20 19:00 05/17/20 19:01 DC 05/17/20 19:00 20 MG Labetalol HCl 20 mg ONCE ONCE IV 05/17/20 20:15 05/17/20 20:16 DC 05/17/20 20:07 20 MG Vital Signs/I&O 05/17/20 05/17/20 18:44 18:55 Temp 36.8 Pulse 93 Resp 18 B/P (MAP) 261/95 (150) Pulse Ox 100 O2 Delivery Room Air O2 Flow Rate 100.00 Capillary Refill : Less Than 3 Seconds Blood Pressure Mean: 150 Departure Communication (Admissions) EKG: Reviewed Chest x-ray: Reviewed Antihypertensive and Lasix given. Transfer to [facility] strongly recommended. Patient declines to follow medical advice and advice of his family members and request discharge immediately from the emergency department without further treatment or evaluation. Patient will be discharged home per his request AGAINST MEDICAL ADVICE. He instructed to return to the emergency department as soon as he changes his mind. Impression Primary Impression: Accelerated hypertension Additional Impressions: AAA (abdominal aortic aneurysm) Congestive heart failure Disposition: AGAINST MEDICAL ADVICE Condition: Critical Departure-Patient Inst. Referrals: [facility] (Family) Primary Care Physician KITTY VILLALBA APRN (PCP) Primary Care Physician FELICIA GREEN DO May 18, 2020 06:01
== END 2020-05-17 21:10 | disposition left against medical advice (07) ==
LOC: EDUNIT# 18:32 → ER FS 18:41
DX: I11.0 Hypertensive heart disease with heart failure (principal); I50.9 Heart failure, unspecified; I71.4 Abdominal aortic aneurysm, without rupture
CPT/HCPCS: 36415; 71045; 80053; 80306; 82805; 83605; 83880; 84484; 85007; 85027; 87040; 93005; 94660

== ENCOUNTER 2020-05-18 03:19 | Emergency (ER) | payer SELFPAY ==
[~2020-05-18] VITALS: Ht 172.7 cm; Wt 130.0 kg
--- NOTE | 2020-05-18 03:35 | ED General ---
General Chief Complaint: Respiratory Problems Stated Complaint: SOA Nursing Triage Note: Patient presents via EMS with complaints of shortness of breath. EMS states that the patient requested to be put on CPAP. Patient is complaining of shortness of breath. Patients SPO2 is 95% on room air with EMS. Patient is 97% on room air on arrival. Patient signed out AMA at this ER earlier. Patient states that he is ready to be admitted now. Nursing Sepsis Screen: No Definite Risk Source of Information: Patient, EMS History of Present Illness Date Seen by Provider: May 18, 2020 Time Seen by Provider: 03:35 Initial Comments Patient is a 40-year-old aa male who left [facility] yesterday AGAINST MEDICAL ADVICE for treatment of congestive heart failure hypertension and aortic aneurysm. Patient was seen in this emergency department several hours ago with congestive heart failure requiring BiPAP and hypertension. He was given Lasix, labetalol and strongly recommended that he be transferred to [facility] so that he could complete his inpatient treatment. The patient declined at that time and left the emergency department AGAINST MEDICAL ADVICE. He represents this morning via EMS with shortness of breath and hypoxia requiring CPAP. Patient denies chest pain. He is now agreeable to complete his outpatient work- up and to be transferred to [facility]. No other acute symptoms or complaints. Timing/Duration: Getting Worse, Other (greater than 2 weeks) Severity: Moderate Associated Systoms: Other Allergies and Home Medications Allergies Coded Allergies: No Known Drug Allergies (Unverified , 12/11/19) Patient Home Medication List Home Medication List Reviewed: Yes Review of Systems Review of Systems Constitutional: see HPI Respiratory: see HPI Cardiovascular: see HPI Gastrointestinal: see HPI Musculoskeletal: see HPI Skin: see HPI Psychiatric/Neurological: See HPI Hematologic/Lymphatic: See HPI Immunological/Allergic: see HPI All Other Systems Reviewed Negative Unless Noted: Yes Past Vmmebqp-Tvhofa-Knfplk Hx Past Med/Social Hx: Reviewed Nursing Past Med/Soc Hx Patient Social History Drug of Choice: Marijuana 2nd Hand Smoke Exposure: No Recent Infectious Disease Expo: No Recent Hopitalizations: No Seasonal Allergies Seasonal Allergies: No Past Medical History 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 oz. 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 Norm as Tested Skin: Normal Color Lymphatic: No Adenopathy Progress/Results/Core Measures Suspected Sepsis Recent Fever Within 48 Hours: No Infection Criteria Present: None New/Unexplained Altered Menta: No Sepsis Screen: No Definite Risk SIRS Temperature: Pulse: 97 Respiratory Rate: 19 Laboratory Tests 05/18/20 03:40: White Blood Count 12.9H Blood Pressure 213 /88 Mean: 129 Laboratory Tests 05/18/20 03:40: Creatinine 1.61H, Platelet Count 339, Total Bilirubin 0.3 Results/Orders Lab Results Laboratory Tests Test 05/18/20 03:40 Range/Units White Blood Count 12.9 H 4.3-11.0 10^3/uL Red Blood Count 3.60 L 4.35-5.85 10^6/uL Hemoglobin 9.5 L 13.3-17.7 G/DL Hematocrit 28 L 40-54 % Mean Corpuscular Volume 79 L 80-99 FL Mean Corpuscular Hemoglobin 26 25-34 PG Mean Corpuscular Hemoglobin Concent 34 32-36 G/DL Red Cell Distribution Width 14.2 10.0-14.5 % Platelet Count 339 130-400 10^3/uL Mean Platelet Volume 12.1 H 7.4-10.4 FL Immature Granulocyte % (Auto) 2 % Neutrophils (%) (Auto) 73 42-75 % Lymphocytes (%) (Auto) 16 12-44 % Monocytes (%) (Auto) 7 0-12 % Eosinophils (%) (Auto) 2 0-10 % Basophils (%) (Auto) 0 0-10 % Neutrophils # (Auto) 9.4 H 1.8-7.8 X 10^3 Lymphocytes # (Auto) 2.1 1.0-4.0 X 10^3 Monocytes # (Auto) 0.9 0.0-1.0 X 10^3 Eosinophils # (Auto) 0.2 0.0-0.3 10^3/uL Basophils # (Auto) 0.0 0.0-0.1 10^3/uL Immature Granulocyte # (Auto) 0.3 H 0.0-0.1 10^3/uL Sodium Level 139 135-145 MMOL/L Potassium Level 3.0 L 3.6-5.0 MMOL/L Chloride Level 100 98-107 MMOL/L Carbon Dioxide Level 29 21-32 MMOL/L Anion Gap 10 5-14 MMOL/L Blood Urea Nitrogen 12 7-18 MG/DL Creatinine 1.61 H 0.60-1.30 MG/DL Estimat Glomerular Filtration Rate 58 BUN/Creatinine Ratio 7 Glucose Level 107 H 70-105 MG/DL Calcium Level 8.4 L 8.5-10.1 MG/DL Corrected Calcium 9.1 8.5-10.1 MG/DL Total Bilirubin 0.3 0.1-1.0 MG/DL Aspartate Amino Transf (AST/SGOT) 143 H 5-34 U/L Alanine Aminotransferase (ALT/SGPT) 162 H 0-55 U/L Alkaline Phosphatase 84 40-136 U/L Troponin I < 0.30 <0.30 NG/ML Pro-B-Type Natriuretic Peptide 2350.0 H <75.0 PG/ML Total Protein 5.9 L 6.4-8.2 GM/DL Albumin 3.1 L 3.2-4.5 GM/DL My Orders Orders - FELICIA GREEN DO Ekg-Prn For Chest Pain Or Rhyt (05/18/20 03:34) Chest 1 View Ap/Pa Only (05/18/20 03:34) Troponin I Fs (05/18/20 03:34) Probnp Fs (05/18/20 03:34) Cbc With Automated Diff (05/18/20 03:34) Comprehensive Metabolic Panel (05/18/20 03:34) Labetalol Injection (Normodyne Injection (05/18/20 03:45) Furosemide Injection (Lasix Injection) (05/18/20 03:45) Ekg Tracing (05/18/20 03:36) Ed Iv/Invasive Line Start (05/18/20 03:52) Medications Given in ED Current Medications Medications Dose Ordered Sig/Brianna Route Start Time Stop Time Status Last Admin Dose Admin Furosemide 40 mg ONCE ONCE IVP 05/18/20 03:45 05/18/20 03:46 DC 05/18/20 03:49 40 MG Labetalol HCl 20 mg ONCE ONCE IV 05/18/20 03:45 05/18/20 03:46 DC 05/18/20 03:45 20 MG Vital Signs/I&O 05/18/20 03:25 Temp 37.0 Pulse 97 Resp 19 B/P (MAP) 213/88 (129) Pulse Ox 97 O2 Delivery Room Air Capillary Refill : Less Than 3 Seconds Blood Pressure Mean: 129 Departure Communication (Admissions) EKG: Reviewed Chest x-ray: Congestive heart failure. Accelerated hypertension with with known AAA, and CHF presenting in mild to moderate respiratory distress. Patient given repeat doses of labetalol and Lasix. He is able to be transitioned from CPAP to 2 L nasal cannula and is no longer in respiratory distress and is resting comfortably. Dr. Kate accepts care of this gentleman Geri Dobson at high 05:00. Critical care time: 45 minutes Impression Primary Impression: Accelerated hypertension Additional Impressions: Congestive heart failure AAA (abdominal aortic aneurysm) Disposition: XFER SHT-TRM HOSP Condition: Critical Transfer Transfer Reason: Patient preference Method of Transfer: EMS Departure-Patient Inst. Referrals: KITTY VILLALBA APRN (PCP) Primary Care Physician [facility] (Family) Primary Care Physician FELICIA GREEN DO May 18, 2020 03:35
[2020-05-18] MEDS ORDERED: FUROSEMIDE 40 MG/4 ML INJ (LASIX) IVP ONE (03:45)
[2020-05-18] MEDS ORDERED: LABETALOL HCL 20 MG/4 ML VIAL IV ONE ×2 (03:45→05:30)
[2020-05-18 04:07] LABS: HEMATOCRIT 28 % (40-54); HEMOGLOBIN 9.5 G/DL (13.3-17.7); MEAN CORPUSCULAR HEMOGLOBIN 26 PG (25-34); MEAN CORPUSCULAR HGB CONC 34 G/DL (32-36); MEAN CORPUSCULAR VOLUME 79 FL (80-99); MEAN PLATELET VOLUME 12.1 FL (7.4-10.4); PLATELET COUNT 339 10^3/uL (130-400); WHITE BLOOD COUNT 12.9 10^3/uL (4.3-11.0)
[2020-05-18 04:08] LABS: BASOPHILS % (AUTO) 0 % (0-10); EOSINOPHILS # (AUTO) 0.2 10^3/uL (0.0-0.3); EOSINOPHILS % (AUTO) 2 % (0-10); LYMPHOCYTES # (AUTO) 2.1 X 10^3 (1.0-4.0); LYMPHOCYTES % (AUTO) 16 % (12-44); MONOCYTES # (AUTO) 0.9 X 10^3 (0.0-1.0); MONOCYTES % (AUTO) 7 % (0-12); NEUTROPHILS # (AUTO) 9.4 X 10^3 (1.8-7.8); NEUTROPHILS % (AUTO) 73 % (42-75)
[2020-05-18 04:15] LABS: BUN/CREATININE RATIO 7; CARBON DIOXIDE 29 MMOL/L (21-32); CHLORIDE 100 MMOL/L (98-107); CREATININE SERUM 1.61 MG/DL (0.60-1.30); GFR ESTIMATED 58; SODIUM 139 MMOL/L (135-145)
[2020-05-18 04:16] LABS: ALANINE AMINOTRANSFERASE 162 U/L (0-55); ALBUMIN 3.1 GM/DL (3.2-4.5); ALKALINE PHOSPHATASE 84 U/L (40-136); BILIRUBIN,TOTAL 0.3 MG/DL (0.1-1.0); CALCIUM 8.4 MG/DL (8.5-10.1); GLUCOSE 107 MG/DL (70-105); TOTAL PROTEIN 5.9 GM/DL (6.4-8.2)
--- NOTE | 2020-05-18 05:11 | Diagnostic Imaging Report ---
INDICATION: Shortness of breath Portable chest 3:42 AM Heart appears mildly enlarged. Pulmonary vascularity is normal. Lungs are clear. IMPRESSION: Mild cardiomegaly. No change from previous day. Dictated by: Dictated on workstation # [id number]
[2020-05-18] MEDS ORDERED: NITROPRUSSIDE INJECTION 50 MG in D5W IV SOLUTION (EXCEL) 250 ML IV SCH (05:30)
[2020-05-18 05:52] VITALS: BP 185/86
== END 2020-05-18 05:57 | disposition short-term general hospital (02) ==
LOC: EDUNIT# 03:19 → ER FS 03:25
DX: I11.0 Hypertensive heart disease with heart failure (principal); I50.9 Heart failure, unspecified; I71.4 Abdominal aortic aneurysm, without rupture
CPT/HCPCS: 36415; 71045; 80053; 83880; 84484; 85025; 93005; 99291